=== PATIENT | male | born 1940 | race Caucasian/White ===

== ENCOUNTER 2017-03-10 07:55 | Day surgery (SDC) | payer MEDICARE ==
[~2017-03-10] VITALS: Ht 177.8 cm; Wt 108.0 kg
[~2017-03-10 07:55] MED LIST: Sodium Chloride LOK Flush 10 mL Syringe IV PRN; fentaNYL-PF 50 mCg/mL 2 mL Inj IVPUSH PRN
[2017-03-10 08:10] VITALS: BP 143/91; PULSE 53; RESP 14; O2SAT 95
[2017-03-10] MEDS ORDERED: LISI40TA PO (08:21)
[2017-03-10] MEDS ORDERED: ATEN50TA PO (08:21)
[2017-03-10] MEDS ORDERED: SIMV40TA5 PO (08:22)
[2017-03-10] MEDS: 0.9% Sodium Chloride 1,000 ML IV SCH ×2 (09:05→09:19)
--- NOTE | 2017-03-10 09:36 | PCM.ENDCOL ---
Colonoscopy Date of Service: Mar 10, 2017 Physician Raza Hankins MD Pre Procedure Diagnosis: Fecal occult blood positive Post Procedure Dx & Findings: Polyp hemorrhoids diverticulitis Procedure Colonoscopy PROCEDURE IN DETAIL: Prep adequate Withdrawal time 16 minutes After unremarkable rectal examination the Olympus video colonoscope was inserted patient's anal canal and was advanced to cecum. Landmarks were identified including the ileocecal valve and appendiceal orifice. Scope was withdrawn systematically. Visualized colonic mucosa showed healthy shiny mucosa with normal healthy-appearing vasculature. In the cecum there was a 2 mm polyp which was removed completely using cold snare. In the transverse colon, there was a 4 mm polyp which was removed completely using cold snare. Also in the transverse colon there was a 1 mm polyp which was removed completely using cold forceps. In the descending colon there were three 2- 5 mm polyps which were all removed completely using cold snare. In the colon, patient had multiple diverticuli small to large in size. Most of these were clustered in the sigmoid colon however there were found isolated throughout the entire colon including the cecum. In the rectum retroflexion was done which showed hemorrhoids. Anal canal was inspected carefully on the way out and hemorrhoids noted. Impression Polyp 6 status post complete removal Diverticuli Hemorrhoids Recommendation Repeat colonoscopy 3 years Diverticular diet Presedation Assessment Risks and Benefits Informed consent was obtained from the patient after all risks and benefits including but not limited to drug reaction, infection, pain, bleeding, perforation, as well as alternatives were discussed. Patient monitoring Continuous pulse oximetry, cardiac monitoring, blood pressure monitoring, IV access, and oxygen at 2L per nasal cannula. Periprocedural Fentanyl: Fentanyl 75mcg Incrementally Midazolam: Midazolam 2mg Incrementally Complications There were no periprocedural complications identified. Post Procedure Plan Post Procedure Recommendations 1. Restrict activities today. 2. Resume normal activities in the morning. 3. Resume medications. 4. Patient informed of normal post procedure side effects as bloating, drowsiness, blood streaking in the stool. 5. average risk CRCS. If colon polyps come back as: -Hyperplastic- can repeat colonoscopy in 10 years -Tubular adenoma- repeat colonoscopy in 5 years -Tubulovillous/villous adenoma- repeat colonoscopy in 3 years -If any dysplasia- return to clinic as soon as possible 6. Please don't hesitate to call me with any questions. Raza Hankins MD Mar 10, 2017 09:36
[2017-03-10 09:37] VITALS: BP 131/85; PULSE 53; RESP 16; O2SAT 92
[2017-03-10 09:47] VITALS: BP 116/80; PULSE 53; RESP 16; O2SAT 90
[2017-03-10 09:57] VITALS: BP 110/71; PULSE 52; RESP 16; O2SAT 94
--- NOTE | 2017-03-12 19:14 | PATH ---
SURGICAL PATHOLOGY Attending Physician:Raza Hankins M.D. CASE STATUS: Signed Out PATIENT NAME: NOEL LOPEZ PID: [id number] : 1940 DATE COLLECTED:03/10/2017 17:42 SPECIMEN: 1: Colon, Biopsy 2: Colon, Biopsy 3: Colon, Biopsy CLINICAL HISTORY: + FOB, COLON POLYPS 1). CECAL POLYP 2). TRANSVERSE POLYPS X4 3). DESCENDING COLON POLYPS FINAL DIAGNOSIS: 1. Cecum, Polyp, Biopsy: Colonic mucosa with no diagnostic abnormality. 2. Transverse Colon, Polyps, Biopsies: Portions of tubular adenoma x4; negative for high-grade dysplasia. 3. Descending Colon, Polyps, Biopsies: Portions of tubular adenoma x5; negative for high-grade dysplasia. ICD10: K63.5 GROSS DESCRIPTION: The specimen is received in three formalin filled containers labeled with the patient's name. 1). The specimen is sublabeled "cecal polyp" and consists of a 0.3 x 0.2 x 0.2 CM portion of tissue which is entirely submitted in cassette 1A. 2). The specimen is sublabeled "transverse polyps x2" and consists of 4 portions of tissue which aggregate to 0.5 x 0.3 x 0.2 CM. The specimen is entirely submitted in cassette 2A. 3). The specimen is sublabeled "descending colon polyps" and consists of 5 portions of tissue which aggregate to 0.6 x 0.6 x 0.4 CM. The specimen is entirely submitted in cassette 3A. 03/10/2017 [facility] ICD-9 CODES: CPT CODES: 1: 90295 2: 32702 3: 82135 Electronically Signed Out Yelena Slade MD [facility] [address], [place] [address] Technical component performed at [facility], [facility] [address], [place], [address]
== END 2017-03-10 23:59 | disposition home or self-care (01) ==
LOC: END 07:55
PROVIDERS: ATTEND Internal Medicine
DX: D12.3 Benign neoplasm of transverse colon (principal); D12.4 Benign neoplasm of descending colon; K63.5 Polyp of colon; K57.30 Diverticulosis of large intestine without perforation or abscess without bleeding; K64.8 Other hemorrhoids; I10 Essential (primary) hypertension; I25.10 Atherosclerotic heart disease of native coronary artery without angina pectoris; Z95.5 Presence of coronary angioplasty implant and graft; Z79.82 Long term (current) use of aspirin
CPT/HCPCS: 45380; 45385; 99153; J7030

== ENCOUNTER 2017-06-26 15:39 | Emergency (ER) | payer MEDICARE ==
[~2017-06-26] VITALS: Ht 175.3 cm; Wt 104.5 kg
[~2017-06-26 15:39] MED LIST changes: +ATEN50TA PO; +LISI40TA PO; +SIMV40TA5 PO; -Sodium Chloride LOK Flush 10 mL Syringe IV PRN; -fentaNYL-PF 50 mCg/mL 2 mL Inj IVPUSH PRN
[2017-06-26 15:43] VITALS: BP 154/83; PULSE 57; RESP 20; O2SAT 95
--- NOTE | 2017-06-26 15:53 | ED.REPORT ---
HPI-Dizziness / Weakness Date of Service Jun 26, 2017 ED Provider: Jama Martinez MD 76 y/o male with a hx of CVA (in 2005), HTN and GERD presents to the ED complaining of dizziness, onset 11 hours ago . He states "my equilibrium is not right". He feels worse while standing. His sx are not exacerbated when he moves his head side to side. The pt is concerned because the last time he felt similarly he was diagnosed with a stroke. He also complains of mild intermittent diaphoresis for the last 3 days. He last experienced diaphoresis about 45 minutes ago when he was eating a ham burger. He did not experience dizziness at that time. He denies weakness and numbness unilaterally, tingling sensation in extremities, change in thought process, speech difficulty, fever, chills, shortness of breath, chest pain, dysuria, melena, hematochezia, nausea and recent change in medications. In the ED, the pt reports feeling slightly lightheaded, though reports some improvement in sx overall. Nursing Notes Stated Complaint: DIZZY Chief Complaint: General Complaint Nursing Notes Reviewed: Yes ([employer] not reconciled) Allergies: Coded Allergies: Penicillins (Verified Allergy, Unknown, 03/10/17) Scheduled Atenolol (Atenolol) 50 Mg Tablet 50 MG PO DAILY Lisinopril (Lisinopril) 40 Mg Tablet 40 MG PO DAILY Simvastatin (Simvastatin) 40 Mg Tablet 40 MG PO HS General Time Seen by MD: 15:52 Chief Complaint Dizzy Hx Obtained From: Patient Arrived By: Walk-in Onset Occurred: 13 - 16 hours ago Symptom Duration: Since onset Severity: Current: No pain currently Severity: Maximum: No pain Recent Healthcare: No recent doctor visit Similar Sx Previous: Yes Risk Factors NIH Stroke Scale Level of Consciousness: Alert and responsive (0) Ask Month & Age: Both questions right (0) Open/Close Eyes/Hand Mud Boss: Performs both tasks (0) Horizontal EO Movements: None (0) Visual Garber: No visual loss (0) Facial Palsy: Normal symmetry (0) Right Arm Motor Drift (10s): No drift 10 sec (0) Left Arm Motor Drift (10s): No drift 10 sec (0) Right Leg Motor Drift (5s): No drift 5 sec (0) Left Leg Motor Drift (5s): No drift 5 sec (0) Limb Ataxia FNF/Heel-[place]: No ataxia (0) Sensation (Arms/Legs/Face): No sensory loss (0) Language Aphasia: No aphasia, normal (0) Dysarthria: No dysarthria, normal (0) Extinction/Inattention: No exctinct/inattent (0) NIHSS Score: 0 Time NIHSS Performed: 16:02 Date NIHSS Performed: Jun 26, 2017 Past Medical History Past Medical History CVA (2005) GERD Reports: Coronary artery disease Past Surgical History Reports: Tonsillectomy Smoking History Former Smoker Social History Other Social History: Good social support Ambulatory Status Independent Review of Systems Denies: tingling sensation in extremities Denies: change in thought process Constitutional: Denies: Chills, Fever Respiratory: Denies: Shortness of breath Cardiovascular: Denies: Chest pain GI: Denies: Hematochezia, Melena, Nausea Skin: Reports Diaphoresis Neurologic: Reports: Dizziness, Lightheaded, Denies: Numbness (unilaterally ), Slurred speech, Unable to speak, Weakness ( unilaterally ) Complete sys rev & neg: except as marked. Male: Denies Dysuria Physical Exam Initial Vital Signs Vital Signs (First) Date Time Temp Pulse Resp B/P Pulse Ox O2 Delivery O2 Flow Rate FiO2 06/26/17 15:43 36.4 57 20 154/83 95 Room Air Initial VS: Reviewed, Vital signs normal Neck: Supple, Non-tender, Full range of motion Abdomen / GI: Soft, Non-tender Extremities: Vascular intact, Neuro intact, No swelling, No tenderness Skin: Warm, Dry, No cyanosis General/Constitutional: Awake, Alert, No acute distress, Well appearing, Cooperative Head / Eyes: Atraumatic, Normocephalic, PERRL, EOMI Nystagmus at far edge of lateral gaze, worse on the right but still within the normal range. Respiratory / Chest: Atraumatic, Breath sounds NL, Breath sounds = bilat, No respiratory distress, No rales, No rhonchi, No wheezing Cardiovascular: Heart rate NL, Regular rhythm, Heart sounds NL, No gallop, No murmurs, No rubs Neurologic: Oriented X3, Speech NL, No motor deficits, No sensory deficits Interpretation & Diagnostics Lab Results Interpretation Result Diagram: 06/26/17 1630 06/26/17 1630 Test 8/3/17 16:30 White Blood Count 8.2th/mm3 (3.8-10.1) Red Blood Count 5.26mil/mm3 (4.40-5.80) Hemoglobin 15.9g/dL (13.8-17.2) Hematocrit 45.3% (41.0-50.0) Mean Corpuscular Volume 86.1fL (81-100) Mean Corpuscular Hemoglobin 30.2pg (27.0-35.0) Mean Corpuscular Hemoglobin Concent 35.1% (32.0-37.0) Red Cell Distribution Width 13.0% (12.3-15.4) Platelet Count 187bil/L (150-400) Neutrophils (%) (Auto) 65.3% (40-74) Lymphocytes (%) (Auto) 23.6% (14-46) Monocytes (%) (Auto) 7.8% (4-12) Eosinophils (%) (Auto) 2.6% (0-5) Basophils (%) (Auto) 0.6% (0-3) Sodium Level 139mEq/L (134-144) Potassium Level 4.3mEq/L (3.5-5.2) Chloride Level 101mEq/L (97-108) Carbon Dioxide Level 23mmol/L (18-29) Blood Urea Nitrogen 18mg/dL (8-27) Creatinine 1.17mg/dL (0.76-1.27) Estimat Glomerular Filtration Rate 65mL/min (>59) Glucose Level 129mg/dL (60-99) Calcium Level 9.7mg/dL (8.5-10.1) Total Bilirubin 0.9mg/dL (0.0-1.2) Aspartate Amino Transf (AST/SGOT) 19U/L (0-50) Alanine Aminotransferase (ALT/SGPT) 24U/L (0-44) Alkaline Phosphatase 39U/L (25-160) Troponin T < 0.010ug/L (0.0-0.011) Total Protein 7.3g/dL (6.4-8.4) Albumin 4.2g/dL (3.4-5.0) Lab Results Interpretation: CBC normal CMP normal troponin negative Urine dip negative ECG Interpretation ECG Interpretation: Normal sinus rhythm. Rate 56. Abnormal R-wave progression, early transition Time: 15:57 Interpreted by: ED physician ECG Interpretation: Normal sinus rhythm. Rate 59. Abnormal R-wave progression, early transition Time: 16:34 Interpreted by: ED physician Repeat ECG: Repeat ECG unchanged CT Head Interpretation IMPRESSION: 1. No acute intracranial abnormality. 2. Mild chronic white matter small vessel ischemic changes and cerebral volume loss. Dictated by: Galo Ghosh M.D. on 06/26/2017 at 17:05 Approved by: Galo Ghosh M.D. on 06/26/2017 at 17:06 Study: Head CT no contrast Interpretation / Wet Read by: Interpret - Radiologist Re-Eval/Medical Decision Med Decision/Clinical Course This is a 76-year-old male presents with nonspecific vague, intermittent dizziness it is not vertiginous in nature, and not provocative twist his head, and has been intermittent. At times it is worse with position in terms of being upright, but has been able to do activities. There is no headache, there is no focal he has had no fevers or chills, but occasional transient sweats-but possibly significantly from the heat. He has no chest pain, shortness of breath or additional complaints. He denies Numbness weakness or paresthesias. Exam he clinically appears well. His NIH stroke scale is 0. He has no focal deficits. Was to turn his head without provocative symptoms he can stand and amnbulate without difficulty. A head CT was obtained and and was negative. Blood work was normal. Urine was normal. EKG was normal. Given his stroke exam is negative, given he clinically appears well, I am not finding indication he requires an MRI. The patient was observed, continues did well. Road test without difficulty. His symptoms are not typical of vertigo. He wonders if it is possible given the unusual heat of the day and being out in active whether or not there is a component of heat exposure. But this is, he is afebrile, well-appearing and actively hydrated here. He is discharged in good condition after routine and return precautions Source of Hx: Old records Re-Evaluation/Progress #1: Time of Eval: 17:39 Re-Evaluation/Progress Note: Rechecked pt. Discussed lab results, imaging results, diagnosis and plan to discharge depending on the road test. Pt understands and agrees with the plan. F/U instruction and RTER warning given. All questions addressed. Re-Evaluation/Progress #2: Time of Eval: 17:44 Re-Evaluation/Progress Note: The pt passed the road test. Differential Diagnosis: Negative: Acute coronary syndrome, Anemia, Cerebrovascular accident, Dehydration, Electrolyte disorder, Hyperventilation syndrome, Intracranial bleed, Pulmonary embolus, Rheumatologic disease, Subarachnoid hemorrhage Counseled Regarding: Diagnosis, Lab results, Need for follow-up, When/why to return to ED Patient Discharge & Departure Impression: Primary Impression: Dizziness Disposition: Home Discharge Condition All VS Reviewed: Yes Condition: Stable Additional Instructions: 1. A dangerous cause of your symptoms was not identified. 2. Your CT scan was normal as was your stroke screen. 3. A search for alternate causes was pursued, and your tests were normal. 4. Take it easy for the next 1-2 days. Symptoms are expected to improve/resolve. 5. If you have new or worsening symptoms, return to the ED. Referrals: Edin Hernandez DO (PCP) Scribe Attestation Portions of this note were transcribed by Samir Booth. I,, personally performed the history, physical exam and medical decision-making;I reviewed and confirmed the accuracy of the information in the transcribed note. Signed by Urban Johnson. 06/26/17 Edin Hernandez Matthew F MD Jun 26, 2017 15:53 Samir Booth Jun 26, 2017 16:02
[2017-06-26 16:41] LABS: BASOPHILS % (AUTO) 0.6 % (0-3); EOSINOPHILS % (AUTO) 2.6 % (0-5); MONOCYTES % (AUTO) 7.8 % (4-12); Mean Corpuscular Hemoglobin 30.2 pg (27.0-35.0); Mean Corpuscular Volume 86.1 fL (81-100); NEUTROPHILS % (AUTO) 65.3 % (40-74); Platelet Count 187 bil/L (150-400)
--- NOTE | 2017-06-26 17:08 | DRSVH ---
PROCEDURE: CT BRAIN WITHOUT CONTRAST ([id number]) INDICATIONS: Dizziness, h/o CVA TECHNIQUE: Noncontrast 4.5 mm thick angled axial sections acquired from the foramen magnum to the vertex, with c oronal reformats. COMPARISON: None. FINDINGS: Image quality: Excellent. CSF spaces: Basal cisterns are patent. No extra-axial fluid collections. The ventricles are symmet jeffrey in size and shape. There is mild cerebral volume loss, with resultant ventricular and sulcal pro minence. Brain: No intracranial hemorrhage, mass, or mass effect. There are subcortical, periventricular and deep white matter hypodensities consistent with mild chronic small vessel ischemic changes. There i s intracranial internal carotid artery atherosclerosis. Skull and face: Calvarium and visualized facial bones appear intact, without suspicious lesions. Sinuses: Visualized sinuses and mastoids are clear. IMPRESSION: 1. No acute intracranial abnormality. 2. Mild chronic white matter small vessel ischemic changes and cerebral volume loss. Dictated by: Galo Ghosh M.D. on 06/26/2017 at 17:05 Approved by: Galo Ghosh M.D. on 06/26/2017 at 17:06
[2017-06-26 17:10] LABS: TROPONIN T < 0.010 ug/L (0.0-0.011)
[2017-06-26 18:29] VITALS: BP 132/86; PULSE 63; RESP 16; O2SAT 95
[2017-06-26 18:44] LABS: APPEARANCE,URINE CLEAR (CLEAR,HAZY); COLOR,URINE YELLOW (YELLOW); OCCULT BLOOD,URINE NEGATIVE (NEGATIVE); UROBILINOGEN,URINE NORMAL (NORMAL)
== END 2017-06-26 18:25 | disposition home or self-care (01) ==
LOC: SED 15:39
DX: R42 Dizziness and giddiness (principal); I25.10 Atherosclerotic heart disease of native coronary artery without angina pectoris; K21.9 Gastro-esophageal reflux disease without esophagitis; Z87.891 Personal history of nicotine dependence; Z88.0 Allergy status to penicillin